=== PATIENT | female | born 1970 | race Caucasian/White ===

== ENCOUNTER 2017-06-15 14:12 | Observation (INO) ==
[2017-06-15 15:24] LABS: Basophils # 0.1 K/mcL (0.0-0.2); Basophils % 0.6 %; Hematocrit 38.2 % (35.3-44.9); Hemoglobin 12.4 g/dL (11.5-15.4); Immature Granulocytes % 0.6 % (0-4); Lymphocytes # 2.2 K/mcL (0.6-4.6); Lymphocytes % 18.5 %; Mean Corpuscular HGB Conc 32.5 g/dL (31.6-35.5); Mean Corpuscular Hemoglobin 27.6 pg (28.0-33.3); Mean Corpuscular Volume 85.1 fL (83.0-100.0); Mean Platelet Volume 9.5 fL (9.4-12.4); Monocytes # 0.8 K/mcL (0.0-1.3); Monocytes % 6.8 %; Neutrophils # 8.9 K/mcL (1.6-8.9); Platelet Count 326 K/mcL (140-400); Red Blood Count 4.49 M/mcL (3.82-4.97); Red Cell Distribution Width 13.4 % (11.5-14.5); Segmented Neutrophils % 73.5 %
[2017-06-15 15:26] LABS: INR 1.1; Prothrombin Time 11.3 Seconds (9.4-12.1)
[2017-06-15 15:28] LABS: Activated Partial Thrombo Time 25.1 Seconds (26.0-36.0)
[2017-06-15 15:34] LABS: BUN/Creatinine Ratio 21 (6-26); Blood Urea Nitrogen 20 mg/dL (7-20); Calcium 9.1 mg/dL (8.6-10.8); Carbon Dioxide 23 mEq/L (19-29); Chloride 104 mEq/L (98-109); Glucose 212 mg/dL (70-99); Osmolality,Calculated 293 (280-300); Potassium 4.7 mEq/L (3.5-4.5); Sodium 137 mEq/L (136-145); eGFR For African Americans > 60 (> 60); eGFR For Non-African Americans > 60 (> 60)
--- NOTE | 2017-06-15 15:55 | Emergency Department Note ---
Disposition Clinical Impression: Chest pain Qualifiers: Chest pain type: precordial pain Qualified Code(s): R07.2 - Precordial pain Knee pain, left Qualifiers: Chronicity: acute Qualified Code(s): M25.562 - Pain in left knee Excoriation of abdomen Qualifiers: Encounter type: initial encounter Qualified Code(s): S30.811A - Abrasion of abdominal wall, initial encounter Disposition: Admitted As Inpatient Condition: Fair Time of Disposition: 16:54 Chest Pain HPI - General Chief Complaint: ED Chest Pain Stated Complaint: Chest heaviness Time Seen by Provider: 06/15/17 15:09 Source: patient Mode of arrival: ambulatory Limitations: no limitations Vital Signs Reviewed: Yes Nursing Notes Reviewed: Yes - History of Present Illness HPI Narrative: 46-year-old female presents the ED for retrosternal chest pressure onset 0900 this AM at rest. Currently nonradiating, but has some associated shortness of air, diaphoresis, and nausea. Patient has had a recent cardiac stress test demonstrating reversible ischemia. Currently pending outpatient cardiac catheterization with Dr. Morales. Patient denies any history of PE/DVT, recent surgeries/mobilization, hemoptysis, or known active malignancy. Patient also complains of left knee pain that is apparently atraumatic, began several days ago, and is without any overt signs of inflammation including redness or swelling. Patient is able to ambulate on the left leg. Patient also complains of pruritic rash to her left lateral/anterior abdominal wall that has become excoriated due to itching. No known history of shingles, no known insect bites or other inoculum to the area. Severity scale (1-10): 9 - Related Data Home Medications Medication Instructions Recorded Confirmed Albuterol Sulfate [Ventolin Hfa] 2 puff IH Q4H PRN 06/15/17 06/15/17 Amitriptyline [Elavil] 25 mg PO HS 06/15/17 06/15/17 Aspirin Enteric Coated [Aspirin EC] 81 mg PO DAILY 06/15/17 06/15/17 Beclomethasone Diprop 40mcg [Qvar 1 puff IH BID 06/15/17 06/15/17 40 mcg] Dicyclomine [Bentyl] 20 mg PO TID PRN 06/15/17 06/15/17 Duloxetine HCl [Cymbalta] 60 mg PO DAILY 06/15/17 06/15/17 Exenatide [Byetta] 10 mcg SQ BID 06/15/17 06/15/17 Fluticasone Propionate Nasal 50 mcg NS DAILY 06/15/17 06/15/17 [Flonase] Gabapentin [Neurontin] 900 mg PO HS 06/15/17 06/15/17 HydrOXYzine Pamoate [Vistaril] 50 mg PO QAM 06/15/17 06/15/17 HydrOXYzine Pamoate [Vistaril] 100 mg PO HS 06/15/17 06/15/17 Insulin Glargine,Hum.rec.anlog 32 unit SQ HS 06/15/17 06/15/17 [Lantus Solostar] Insulin LISPRO [HumaLOG] 0 unit SQ TIDWM 06/15/17 06/15/17 Lisinopril [Zestril] 10 mg PO DAILY 06/15/17 06/15/17 Lovastatin 10 mg PO QPM 06/15/17 06/15/17 Metformin HCl [Glucophage Xr] 500 mg PO QPM 06/15/17 06/15/17 Naproxen [Naprosyn] 500 mg PO BID PRN 06/15/17 06/15/17 Omeprazole [PriLOSEC] 20 mg PO BIDAC 06/15/17 06/15/17 Propranolol HCl [Innopran Xl] 80 mg PO BID 06/15/17 06/15/17 SUMAtriptan Succinate [Imitrex] 100 mg PO Q2H PRN MDD 200 mg 06/15/17 06/15/17 SitaGLIPtin [Januvia] 100 mg PO DAILY 06/15/17 06/15/17 Trazodone HCl 100 mg PO HS PRN 06/15/17 06/15/17 clonazePAM [Klonopin] 0.5 mg PO BID PRN 06/15/17 06/15/17 glyBURIDE [GlyBURIDE] 10 mg PO BIDWM 06/15/17 06/15/17 Allergies Allergy/AdvReac Type Severity Reaction Status Date / Time No Known Allergies Allergy Verified 06/09/15 18:36 Review of Systems: Denies fevers, chills, sweats, palpitations, abdominal pain, vomiting, dysuria, blood and urine. 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 Absent: wheezes, stridor, accessory muscle use, prolonged expiratory phase - Cardiovascular Cardiovascular exam: Present: regular rate, normal rhythm, normal heart sounds. Absent: tachycardia, systolic murmur, diastolic murmur, +S3, +S4 - Abdominal Exam Abdominal exam: Present: soft, Non-Tender, other (Small region excoriated lesions to the left anterior abdominal wall not strictly following Dermatol pattern) - Extremities Exam Extremities exam: Absent: pedal edema - Expanded Lower Extremity Exam Knee exam: Present: normal inspection, full ROM, tenderness. Absent: swelling, abrasion, ecchymosis, deformity, crepitus, erythema, effusion Neurovascular/Tendon exam: Present: normal capillary refill. Absent: pulse deficit - Neurological Exam Neurological exam: Present: alert, oriented X3 - Skin Skin exam: Present: warm, normal color, diaphoresis (Mild). Absent: cyanosis, pallor, mottled Course - Consultations Consultation #1: Paged cardiology at request of hospitalist; spoke with registration scheduling specialist cardiology who requests NPO after midnight for AM cardiac catheterization. Time: 16:53 Vital Signs Temperature 98.3 F 06/15/17 14:20 Pulse Rate 82 06/15/17 14:20 Respiratory Rate 16 06/15/17 14:20 Blood Pressure 122/76 06/15/17 14:20 O2 Sat by Pulse Oximetry 95 06/15/17 14:20 Temperature 97.9 F 06/15/17 19:13 Pulse Rate 77 06/15/17 19:13 Respiratory Rate 16 06/15/17 20:06 Blood Pressure 110/71 06/15/17 19:13 O2 Sat by Pulse Oximetry 96 06/15/17 20:06 Oxygen Delivery Oxygen Delivery Room Air Chest Pain - [facility] Narrative Medical decision making narrative: Patient with known ischemic cardiac vasculature presents with approximately 7 hour history of acute onset of retrosternal chest pressure. Patient took 81mg ASA prior to arrival. HEART score = 5. Multiple EKGs negative. Initial troponin negative. Due to high risk, feel she should be admitted for further observation, monitoring, and ACS rule out. Hospitalist returned page at [phone] who accepts patient for ACS rule out; requests cardiology be paged and notified for consideration of inpatient cardiac catheterization. Spoke with cardiology who plans to do cath in AM and requests NPO at midnight. - Lab Data Lab results reviewed: Yes I reviewed the patient's lab results. Result diagrams: 06/15/17 15:14 06/15/17 15:14 Lab Results 06/15/17 06/15/17 06/15/17 Range/Units 15:14 15:14 15:14 WBC 12.1 H (4.3-11.1) K/mcL RBC 4.49 (3.82-4.97) M/mcL Hgb 12.4 (11.5-15.4) g/dL Hct 38.2 (35.3-44.9) % MCV 85.1 (83.0-100.0) fL MCH 27.6 L (28.0-33.3) pg MCHC 32.5 (31.6-35.5) g/dL RDW 13.4 (11.5-14.5) % Plt Count 326 (140-400) K/mcL MPV 9.5 (9.4-12.4) fL Immature Gran % 0.6 (0-4) % Seg Neutrophils % 73.5 % Lymphocytes % 18.5 % Monocytes % 6.8 % Eosinophils % 0.0 % Basophils % 0.6 % Neutrophils # 8.9 (1.6-8.9) K/mcL Lymphocytes # 2.2 (0.6-4.6) K/mcL Monocytes # 0.8 (0.0-1.3) K/mcL Eosinophils # 0.0 (0.0-0.6) K/mcL Basophils # 0.1 (0.0-0.2) K/mcL PT 11.3 (9.4-12.1) Seconds INR 1.1 APTT 25.1 L (26.0-36.0) Seconds Sodium (136-145) mEq/L Potassium (3.5-4.5) mEq/L Chloride (98-109) mEq/L Carbon Dioxide (19-29) mEq/L BUN (7-20) mg/dL Creatinine (0.57-1.11) mg/dL Est GFR ( Amer) (> 60) Est GFR (Non-Af Amer) (> 60) BUN/Creatinine Ratio (6-26) Glucose (70-99) mg/dL Calculated Osmolality (280-300) Calcium (8.6-10.8) mg/dL Troponin I (0-0.03) ng/mL B-Natriuretic Peptide < 10 (0-100) pg/mL 06/15/17 06/15/17 Range/Units 15:14 15:14 WBC (4.3-11.1) K/mcL RBC (3.82-4.97) M/mcL Hgb (11.5-15.4) g/dL Hct (35.3-44.9) % MCV (83.0-100.0) fL MCH (28.0-33.3) pg MCHC (31.6-35.5) g/dL RDW (11.5-14.5) % Plt Count (140-400) K/mcL MPV (9.4-12.4) fL Immature Gran % (0-4) % Seg Neutrophils % % Lymphocytes % % Monocytes % % Eosinophils % % Basophils % % Neutrophils # (1.6-8.9) K/mcL Lymphocytes # (0.6-4.6) K/mcL Monocytes # (0.0-1.3) K/mcL Eosinophils # (0.0-0.6) K/mcL Basophils # (0.0-0.2) K/mcL PT (9.4-12.1) Seconds INR APTT (26.0-36.0) Seconds Sodium 137 (136-145) mEq/L Potassium 4.7 H (3.5-4.5) mEq/L Chloride 104 (98-109) mEq/L Carbon Dioxide 23 (19-29) mEq/L BUN 20 (7-20) mg/dL Creatinine 0.97 (0.57-1.11) mg/dL Est GFR ( Amer) > 60 (> 60) Est GFR (Non-Af Amer) > 60 (> 60) BUN/Creatinine Ratio 21 (6-26) Glucose 212 H (70-99) mg/dL Calculated Osmolality 293 (280-300) Calcium 9.1 (8.6-10.8) mg/dL Troponin I 0.01 (0-0.03) ng/mL B-Natriuretic Peptide (0-100) pg/mL Laboratory Last Values WBC 12.1 K/mcL (4.3-11.1) H 06/15/17 15:14 RBC 4.49 M/mcL (3.82-4.97) 06/15/17 15:14 Hgb 12.4 g/dL (11.5-15.4) 06/15/17 15:14 Hct 38.2 % (35.3-44.9) 06/15/17 15:14 MCV 85.1 fL (83.0-100.0) 06/15/17 15:14 MCH 27.6 pg (28.0-33.3) L 06/15/17 15:14 MCHC 32.5 g/dL (31.6-35.5) 06/15/17 15:14 RDW 13.4 % (11.5-14.5) 06/15/17 15:14 Plt Count 326 K/mcL (140-400) 06/15/17 15:14 MPV 9.5 fL (9.4-12.4) 06/15/17 15:14 Immature Gran % 0.6 % (0-4) 06/15/17 15:14 Seg Neutrophils % 73.5 % 06/15/17 15:14 Lymphocytes % 18.5 % 06/15/17 15:14 Monocytes % 6.8 % 06/15/17 15:14 Eosinophils % 0.0 % 06/15/17 15:14 Basophils % 0.6 % 06/15/17 15:14 Neutrophils # 8.9 K/mcL (1.6-8.9) 06/15/17 15:14 Lymphocytes # 2.2 K/mcL (0.6-4.6) 06/15/17 15:14 Monocytes # 0.8 K/mcL (0.0-1.3) 06/15/17 15:14 Eosinophils # 0.0 K/mcL (0.0-0.6) 06/15/17 15:14 Basophils # 0.1 K/mcL (0.0-0.2) 06/15/17 15:14 PT 11.3 Seconds (9.4-12.1) 06/15/17 15:14 INR 1.1 06/15/17 15:14 APTT 25.1 Seconds (26.0-36.0) L 06/15/17 15:14 Sodium 137 mEq/L (136-145) 06/15/17 15:14 Potassium 4.7 mEq/L (3.5-4.5) H 06/15/17 15:14 Chloride 104 mEq/L (98-109) 06/15/17 15:14 Carbon Dioxide 23 mEq/L (19-29) 06/15/17 15:14 BUN 20 mg/dL (7-20) 06/15/17 15:14 Creatinine 0.97 mg/dL (0.57-1.11) 06/15/17 15:14 Est GFR ( Amer) > 60 (> 60) 06/15/17 15:14 Est GFR (Non-Af Amer) > 60 (> 60) 06/15/17 15:14 BUN/Creatinine Ratio 21 (6-26) 06/15/17 15:14 Glucose 212 mg/dL (70-99) H 06/15/17 15:14 Calculated Osmolality 293 (280-300) 06/15/17 15:14 Calcium 9.1 mg/dL (8.6-10.8) 06/15/17 15:14 Troponin I 0.01 ng/mL (0-0.03) 06/15/17 15:14 B-Natriuretic Peptide < 10 pg/mL (0-100) 06/15/17 15:14 - Radiology Data Radiology results reviewed: Yes I reviewed the patient's radiology results. Chest X-Ray 06/15/17 14:24 IMPRESSION: Normal appearing chest. D/ / Albino Tracey MD / Albino Tracey MD Interpreting Provider: Albino Tracey MD Heart Score - Score History: Highly Suspicious EKG: Normal Age: 45-65 Risk Factors: Equal/Greater than 3 risk factor or history of atherosclerotic disease Troponin: Less than normal limit HEART Score Total: 5
--- NOTE | 2017-06-15 15:58 | Emergency Department Note ---
START Narrative - START START: I examined this patient and my medical decision-making was reviewed with the NUCLEAR MEDICINE TECHNICIAN/PA/Advanced Practice Nurse/Resident Physician. I agree with the documented findings, disposition and treatment plan as described except to the extent set forth below. The patient does have chest pain started this morning and she did have a stress test just over a week ago which showed reversible deficit. Initial EKG at 216 shows normal sinus rhythm with a rate of 84 without acute ischemic changes and because of continued ongoing pain the patient had a second EKG at 350 which shows a normal sinus rhythm with a rate of 76 and again without acute ischemic change so the patient will be admitted based on her previous stress test with the reversible deficit and the onset of more significant pain. She denies any pleuritic pain, there is no radiation to the back, I do not suspect pulmonary embolism or aortic dissection. The hospitalist will be contacted about admission [phone]
[2017-06-15] MEDS ORDERED: *HR* Morphine 2 MG/ML SYRINGE IVP PRN (17:06)
[2017-06-15] MEDS ORDERED: Nitroglycerin 0.4 MG TAB.SUBL SL PRN (17:06)
[2017-06-15] MEDS ORDERED: Dextrose Gel 15 GM PO PRN ×2 (17:09)
[2017-06-15] MEDS ORDERED: *HR* Dextrose 50 % in Water (Syg) 50 ML SYRINGE IVP PRN (17:09)
[2017-06-15] MEDS ORDERED: SUMAtriptan succinate 50 MG TABLET PO PRN (17:09)
[2017-06-15] MEDS ORDERED: clonazePAM 0.5 MG TABLET PO PRN (17:09)
[2017-06-15] MEDS ORDERED: D5% in Water 1,000 ML IVC PRN (17:09)
--- NOTE | 2017-06-15 17:17 | Internal Med History&Physical ---
Date of Encounter: 06/15/17 Time of Encounter: 17:00 Assessment and Plan (1) Chest pain Current visit: Yes Status: Acute Precordial chest pressure. Concerning for angina and dizziness. Place on telemetry. Trend troponins. Cardiology has been consulted. Given patient's abnormal cardiac stress test, plan for cardiac catheterization tomorrow. Will keep nothing by mouth after midnight. Check A1c level and lipid profile. Nitroglycerin and morphine as needed for pain control. Does have high risk factors including history of diabetes mellitus type 2, hypertension, obesity and positive family history. Qualifiers: Chest pain type: precordial pain Qualified Code(s): R07.2 - Precordial pain (2) Abnormal nuclear stress test Current visit: Yes Status: Acute (3) Diabetes mellitus Current visit: Yes Status: Chronic Blood glucose 212. Monitor blood sugars. Sliding scale insulin and Levemir. Diabetic diet. We will check A1c. 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 Continue lisinopril Internal Medicine - H&P: HPI Chief complaint: Chest pressure Admitted From: Emergency Dept Plans for Post Hospital Care: Home History of present illness: Ms. Agee is a 46 year old female patient with a history of essential hypertension, diabetes mellitus type 2 who presented to the ER with complaints of chest pain. This began at around 10 AM this morning. Pain is described as a pressure-like sensation in the central chest region. It is nonradiating. No relation to activity. Earlier this month she had pain in her left jaw and she was referred for a stress test as outpatient. The stress test was positive for medium-sized mild to moderate intensity reversible perfusion defect involving the basal-apical anterior wall and apex. Patient was scheduled for a cardiac catheterization as outpatient later this month. She denies any shortness of breath. No palpitations. No fever or chills. No dizziness or lightheadedness. Past Med Surg Social Fam HX - Past Medical History Attestation: Yes The following information was validated with the patient. Source: patient Medical history: asthma, coronary artery disease, diabetes, hyperlipidemia, hypertension, other (Ongoing episodic angina currently in course of diagnostic evaluation; pending cardiac cath) Psychiatric history: anxiety, depression - Past Surgical History Surgical History: non-contributory, (x2), sinus surgery (x2), other ( tubal ligation) - Social History Smoking Status: Never smoker Smokeless Tobacco Status: No Alcohol use: none Drug use: none - Additional Family History Additional family history: Positive family history for heart disease in mother and father Internal Medicine - H&P: Meds Albuterol Sulfate [Ventolin Hfa] 2 puff IH Q4H PRN 06/15/17 [History] Amitriptyline [Elavil] 25 mg PO HS 06/15/17 [History] Aspirin Enteric Coated [Aspirin EC] 81 mg PO DAILY 06/15/17 [History] Beclomethasone Diprop 40mcg [Qvar 40 mcg] 1 puff IH BID 06/15/17 [History] Dicyclomine [Bentyl] 20 mg PO TID PRN 06/15/17 [History] Duloxetine HCl [Cymbalta] 60 mg PO DAILY 06/15/17 [History] Exenatide [Byetta] 10 mcg SQ BID 06/15/17 [History] Fluticasone Propionate Nasal [Flonase] 50 mcg NS DAILY 06/15/17 [History] Gabapentin [Neurontin] 900 mg PO HS 06/15/17 [History] HydrOXYzine Pamoate [Vistaril] 50 mg PO QAM 06/15/17 [History] HydrOXYzine Pamoate [Vistaril] 100 mg PO HS 06/15/17 [History] Insulin Glargine,Hum.rec.anlog [Lantus Solostar] 32 unit SQ HS 06/15/17 [History ] Insulin LISPRO [HumaLOG] 0 unit SQ TIDWM 06/15/17 [History] Lisinopril [Zestril] 10 mg PO DAILY 06/15/17 [History] Lovastatin 10 mg PO QPM 06/15/17 [History] Metformin HCl [Glucophage Xr] 500 mg PO QPM 06/15/17 [History] Naproxen [Naprosyn] 500 mg PO BID PRN 06/15/17 [History] Omeprazole [PriLOSEC] 20 mg PO BIDAC 06/15/17 [History] Propranolol HCl [Innopran Xl] 80 mg PO BID 06/15/17 [History] SUMAtriptan Succinate [Imitrex] 100 mg PO Q2H PRN MDD 200 mg 06/15/17 [History] SitaGLIPtin [Januvia] 100 mg PO DAILY 06/15/17 [History] Trazodone HCl 100 mg PO HS PRN 06/15/17 [History] clonazePAM [Klonopin] 0.5 mg PO BID PRN 06/15/17 [History] glyBURIDE [GlyBURIDE] 10 mg PO BIDWM 06/15/17 [History] 3 Allergy/AdvReac Type Severity Reaction Status Date / Time No Known Allergies Allergy Verified 06/09/15 18:36 All Systems PM: A 10-system review of systems was performed and is negative for pertinent findings except as documented above in the HPI. - Constitutional Constitutional: no chills, no fever(s), no night sweats - EENT Eyes: no change in vision, no discharge, no pain, no photophobia Ears: no ear discharge, no ear pain, no tinnitus Nose, mouth and throat: no dysphagia, no nasal discharge, no neck pain, no sore throat - Cardiovascular Cardiovascular ROS IM: chest pain, no diaphoresis, no dyspnea, no lightheadedness, no palpitations, no syncope - Respiratory Respiratory: no cough, no dyspnea, no wheezing, no excessive phlegm production - Gastrointestinal Gastrointestinal: no abdominal pain, no diarrhea, no hematemesis, no hematochezia, no melena, no nausea, no vomiting - Genitourinary Genitourinary: no change in urinary stream, no dysuria, no flank pain, no hematuria - Musculoskeletal Musculoskeletal ROS IM: arthralgias, no numbness, no tingling - Integumentary Integumentary IM: no rash, no unusual bruising - Neurological Neurological ROS: no confusion, no convulsions, no focal weakness, no numbness, no tingling, no tremor(s) - Hematologic/Lymphatic Hematologic/Lymphatic: no easy bruising - Constitutional Vitals: Temp Pulse Resp BP Pulse Ox 98.3 F 84 18 117/76 96 06/15/17 14:20 06/15/17 15:48 06/15/17 17:03 06/15/17 17:03 06/15/17 15:48 General appearance: Present: cooperative, A&O X 3, morbidly obese, answers questions appropriately - Neck Neck exam general surgery: Present: supple, trachea midline. Absent: lymphadenopathy - Respiratory Respiratory exam: Present: CTAB. Absent: accessory muscle use, rales, rhonchi, wheezes - Cardiovascular Cardiovascular exam: Present: RRR, +S1, +S2. Absent: diastolic murmur, gallop, rubs, systolic murmur - GI/Abdominal GI/Abdominal exam: Present: normal bowel sounds, soft, no peritoneal signs. Absent: distended, tenderness - Extremities Exam Extremities exam: Present: warm, radial pulses palpable and symmetrical. Absent : calf tenderness, cyanotic, pedal edema - Neurological Exam Neurological exam: Present: CN II-XII intact, oriented X3, no focal deficits. Absent: facial droop, speech deficit - Skin Skin exam: Present: dry, intact Internal Med - H&P Results - Labs CBC & Chem 7: 06/15/17 15:14 06/15/17 15:14 - EKG Data -: EKG Interpreted by Myself EKG shows normal: sinus rhythm Rate: normal - EKG Data Interpretation IM: normal EKG - Impressions Impressions Chest X-Ray 06/15/17 14:24 IMPRESSION: Normal appearing chest. D/ / Albino Tracey MD / Albino Tracey MD Interpreting Provider: Albino Tracey MD
[2017-06-15] MEDS: *HR* Heparin 5,000 UNIT/ML VIAL SQ SCH (19:05)
[2017-06-15] MEDS: Beclomethasone 40mcg MDI IH SCH (20:07)
[2017-06-15] MEDS: Propranolol LA (24 HR) 80 MG CAP.SA.24H PO SCH (20:28)
[2017-06-15] MEDS ORDERED: traZODone 50 MG TABLET PO PRN (21:00)
[2017-06-15] MEDS ORDERED: Gabapentin 300 MG CAPSULE PO SCH (21:00)
[2017-06-15] MEDS ORDERED: Insulin LISPRO 300 UNITS/3 ML VIAL SQ SCH (21:00)
[2017-06-15] MEDS ORDERED: hydrOXYzine pamoate 25 MG CAPSULE PO SCH (21:00)
[2017-06-15] MEDS ORDERED: Ondansetron 4 MG/2 ML VIAL IVP ONE (22:29)
[2017-06-16 03:09] LABS: Basophils # 0.1 K/mcL (0.0-0.2); Basophils % 0.5 %; Hematocrit 33.2 % (35.3-44.9); Immature Granulocytes % 0.4 % (0-4); Lymphocytes # 2.2 K/mcL (0.6-4.6); Mean Corpuscular HGB Conc 32.5 g/dL (31.6-35.5); Mean Platelet Volume 9.5 fL (9.4-12.4); Monocytes # 0.6 K/mcL (0.0-1.3); Monocytes % 6.4 %; Neutrophils # 6.9 K/mcL (1.6-8.9); Platelet Count 245 K/mcL (140-400); Red Blood Count 3.86 M/mcL (3.82-4.97); Red Cell Distribution Width 13.5 % (11.5-14.5); Segmented Neutrophils % 70.7 %
[2017-06-16 03:18] LABS: Hemoglobin 10.8 g/dL (11.5-15.4)
[2017-06-16 03:22] LABS: Hemoglobin A1C 6.6 %
[2017-06-16 03:29] LABS: BUN/Creatinine Ratio 24 (6-26); Blood Urea Nitrogen 20 mg/dL (7-20); Calcium 8.6 mg/dL (8.6-10.8); Carbon Dioxide 26 mEq/L (19-29); Chloride 103 mEq/L (98-109); Glucose 219 mg/dL (70-99); Osmolality,Calculated 295 (280-300); Potassium 4.5 mEq/L (3.5-4.5); Sodium 138 mEq/L (136-145); eGFR For African Americans > 60 (> 60); eGFR For Non-African Americans > 60 (> 60)
[2017-06-16] MEDS: *HR* Heparin 5,000 UNIT/ML VIAL SQ SCH (08:20)
[2017-06-16] MEDS: Propranolol LA (24 HR) 80 MG CAP.SA.24H PO SCH (08:21)
[2017-06-16] MEDS: Insulin LISPRO 300 UNITS/3 ML VIAL SQ SCH ×2 (08:23→11:29)
[2017-06-16] MEDS ORDERED: Fluticasone Propionate Nasal 50 MCG/SPRAY BOTTLE NS SCH (09:00)
[2017-06-16] MEDS ORDERED: hydrOXYzine pamoate 25 MG CAPSULE PO SCH (09:00)
[2017-06-16] MEDS ORDERED: Aspirin Enteric Coated 81 MG Tablet PO SCH (09:00)
[2017-06-16] MEDS: Beclomethasone 40mcg MDI IH SCH (10:03)
--- NOTE | 2017-06-16 10:15 | Cardiology Consult Note ---
Date of Encounter: 06/16/17 Time of Encounter: 10:10 Assessment and Plan (1) Abnormal nuclear stress test Current Visit: Yes Status: Acute Stress test completed 05/29/17 The exercise capacity was fair. Patient had wheezing and shortness of breath with exercise. Exercise ECG is negative for ischemia. The left ventricle is borderline dilated. Gated LVEF = 57%. There is a medium sized, mild-moderate intensity, reversible perfusion defect involving the basal-apical anterior wall and apex. Findings are consistent with reversible ischemia involving the basal-apical anterior wall and apex. Presents with recurrent chest pain. Troponin negative x3. EKG with no acute ST changes. Multiple cardiac risk factors include DM type II, HTN, HLD, obesity, and significant family history (mother PR in her 40's). [facility] R/B/A reviewed and she agrees to proceed. Continue risk factor modification. Continue asa and statin therapy. (2) Chest pain Current Visit: Yes Status: Acute Qualifiers: Chest pain type: precordial pain Qualified Code(s): R07.2 - Precordial pain Discussion w patient/family: The assessment and plan as outlined above was discussed with the patient and/or family members who expressed understanding and agreement. All questions were answered. Thank you for involving us in the care of your patient. Please call with any questions. History of Present Illness Consult date: 06/16/17 Requesting physician: Mary Ceballos Consult reason: Chest pain Chief complaint: Chest pain History of present illness: Ms. Agee is a 46 year old female who presented with chest pain radiating to her back between her shoulder blades yesterday. States pain started while she was watching TV sitting on her couch. Denies alleviating factors. Admits to occasional palpitations and SOB associated with her chest pain. Pain was intermittent for 24 hours. She c/o jaw pain at rest two weeks ago that prompted her primary care doctor to order a stress test. Two day exercise stress test completed 05/29/17 showed reversible perfusion defect in the basal to apical anterior wall and apex concerning for ischemia. She was scheduled to see cardiology next week for further evaluation. She has a past medical history of HTN, HLD, DM type II, asthma, and obesity. She denies history of CAD. She did undergo LHC in 2009 that did not show any flow limiting lesions. Past Med Surg Social Fam HX - Past Medical History Medical history: asthma, diabetes, hyperlipidemia, hypertension, other (Ongoing episodic angina currently in course of diagnostic evaluation; pending cardiac cath) Psychiatric history: anxiety, depression - Past Surgical History Surgical History: non-contributory, (x2), sinus surgery (x2), other ( tubal ligation) - Social History Smoking Status: Never smoker Smokeless Tobacco Status: No Alcohol use: none Drug use: none Medications and Allergies Albuterol Sulfate [Ventolin Hfa] 2 puff IH Q4H PRN 06/15/17 [History] Amitriptyline [Elavil] 25 mg PO HS 06/15/17 [History] Aspirin Enteric Coated [Aspirin EC] 81 mg PO DAILY 06/15/17 [History] Beclomethasone Diprop 40mcg [Qvar 40 mcg] 1 puff IH BID 06/15/17 [History] Dicyclomine [Bentyl] 20 mg PO TID PRN 06/15/17 [History] Duloxetine HCl [Cymbalta] 60 mg PO DAILY 06/15/17 [History] Exenatide [Byetta] 10 mcg SQ BID 06/15/17 [History] Fluticasone Propionate Nasal [Flonase] 50 mcg NS DAILY 06/15/17 [History] Gabapentin [Neurontin] 900 mg PO HS 06/15/17 [History] HydrOXYzine Pamoate [Vistaril] 50 mg PO QAM 06/15/17 [History] HydrOXYzine Pamoate [Vistaril] 100 mg PO HS 06/15/17 [History] Insulin Glargine,Hum.rec.anlog [Lantus Solostar] 32 unit SQ HS 06/15/17 [History ] Insulin LISPRO [HumaLOG] 0 unit SQ TIDWM 06/15/17 [History] Lisinopril [Zestril] 10 mg PO DAILY 06/15/17 [History] Lovastatin 10 mg PO QPM 06/15/17 [History] Metformin HCl [Glucophage Xr] 500 mg PO QPM 06/15/17 [History] Naproxen [Naprosyn] 500 mg PO BID PRN 06/15/17 [History] Omeprazole [PriLOSEC] 20 mg PO BIDAC 06/15/17 [History] Propranolol HCl [Innopran Xl] 80 mg PO BID 06/15/17 [History] SUMAtriptan Succinate [Imitrex] 100 mg PO Q2H PRN MDD 200 mg 06/15/17 [History] SitaGLIPtin [Januvia] 100 mg PO DAILY 06/15/17 [History] Trazodone HCl 100 mg PO HS PRN 06/15/17 [History] clonazePAM [Klonopin] 0.5 mg PO BID PRN 06/15/17 [History] glyBURIDE [GlyBURIDE] 10 mg PO BIDWM 06/15/17 [History] 3 Allergy/AdvReac Type Severity Reaction Status Date / Time No Known Allergies Allergy Verified 06/09/15 18:36 All Systems Review: A 10-system review of systems was performed and is negative for pertinent findings except as documented above in the HPI. Physical Examination Vital Signs, Last 4 Hours Temp Pulse Resp BP Pulse Ox 06/16/17 10:03 18 98 06/16/17 06:50 98.1 F 66 18 108/71 98 General: Conversant, No Apparent Distress, Other (Morbid obesity) HEENT: Atraumatic, Normocephaly, Mucus Membranes Moist Neck: No JVD, Normal carotid pulses Cardiac: Reg Rate and Rhythm, Normal S1 and S2, No Murmur Lungs: Normal Breath Sounds, No Wheeze, Rales, Rhonchi Neuro: Alert and responsive, No focal deficits noted Abdomen: Soft, Non-Tender Skin: No rashes noted on visualized skin Musculoskeletal: No Chest Wall Tenderness Extremities: No Clubbing, No Cyanosis, No Edema, Normal Pulses Results 06/16/17 02:53 06/16/17 02:53 Lab Results 06/15/17 06/16/17 06/16/17 20:33 02:53 02:53 WBC 9.8 Hgb 10.8 L D Hct 33.2 L Plt Count 245 Sodium 138 Potassium 4.5 Chloride 103 Carbon Dioxide 26 BUN 20 Creatinine 0.85 Glucose 219 H Calcium 8.6 Troponin I 0.00 06/16/17 02:53 WBC Hgb Hct Plt Count Sodium Potassium Chloride Carbon Dioxide BUN Creatinine Glucose Calcium Troponin I 0.00 - Imaging and Cardiology Stress Test: report reviewed - EKG Interpretation EKG results cardiology: personally reviewed Consult Discharge Plan - Plan Referrals: Chava Saleh MD [Primary Care Provider] - (web request sent on 06/16/17 )
[2017-06-16] MEDS ORDERED: Insulin DETEMIR 100 UNIT/ML X5UNITS SQ SCH (11:15)
[2017-06-16] MEDS ORDERED: Heparin 1,000 UNITS/500 mL NS 500 ML ONE (11:42)
[2017-06-16] MEDS ORDERED: 0.9 % Sodium Chloride 1,000 ML ONE ×2 (11:42→12:29)
[2017-06-16] MEDS ORDERED: *HR* Heparin 10,000 UNIT/10 ML VIAL ONE (11:42)
[2017-06-16] MEDS ORDERED: *HR* FentaNYL (PF) 100 MCG/2 ML VIAL ONE (12:29)
[2017-06-16] MEDS ORDERED: *HR* Midazolam HCl 2 MG/2 ML VIAL ONE ×2 (12:29→12:54)
--- NOTE | 2017-06-16 12:39 | Pre-Sedation Evaluation ---
Pre-sedation evaluation - Pre-sedation checklist Date of procedure: 06/16/17 Procedure: [facility] Recent Vitals: Last Vital Signs Temp 98.1 F 06/16/17 11:19 Pulse 70 06/16/17 11:19 Resp 18 06/16/17 11:19 BP 99/66 06/16/17 11:19 Pulse Ox 96 06/16/17 11:19 H&P (including ROS) documented in medical record: Yes Previous reaction to sedatives/anesthetics: No Dietary Status: NPO after Midnight Airway Assessment: Patient can open mouth completely, TMJ function normal Dentition: No loose teeth or bridges Possible difficult airway: No ASA Classification *see protocol: CLASS III-Severe systemic disease Plan of Care: Pt appropriate candidate for procedure/moderate/conscious sedation , Risks/benefits of procedure/sedation discussed w/ patient/family, If not NPO; Risk of intake outweiged by necessity to perform procedure
[2017-06-16] MEDS ORDERED: Nitroglycerin 1,000 MCG/10 ML VIAL IV ONE (12:42)
--- NOTE | 2017-06-16 13:16 | Event Note ---
Date of Encounter: 06/16/17 Time of Encounter: 13:13 - Cardiology Event Note LHC showed no significant CAD. ECHO completed showed normal EF. No significant valvular disease. Continue aggressive risk factor modification. Consider work-up of non-cardiac cause of chest pain. Cardiology signing off. Please call with questions.
--- NOTE | 2017-06-16 13:25 | Invasive Diagnostic Lab Proc ---
Name: Rachel Agee Date of Study: 06/16/2017 Date: 1970 Ht: 65.0in Medical Record#: [id number] Age: 46 Wt: 309.53lb Gender: Female BSA: 2.38 Order #: [id number] BMI: 51.57 Physicians Procedure Physician: Joshua Fraire DO Referring MD: Referring MD: Staff Name Position Time In Steph Krishnan RN Monitor 12:39 PM Aure Ravi RN Waste Management Engineer 12:39 PM Mary Ann RN Waste Management Engineer 12:39 PM [facility], Catherine RT (R) Scrub 12:39 PM Indications Indication Abnormal Test - Stress Procedures Performed Procedure L HRT ARTERY/VENTRICLE ANGIO Pre-Procedure Checklist Informed consent is complete signed and on chart. H&P is on chart. ID band is on and ID verified with patient. Patient NPO for procedure The procedure was described for the patient and questions were answered. Blood Pressure: 108/71 ECG is on chart. Rhythm: NSR Plan of Care Patient will tolerate the procedure without complications. Adequate level of comfort will be maintained. Hemodynamics will remain stable Patient will recover from procedure without complications. Respiratory function will be maintained. Cardiac rhythm will remain stable. Patient temperature will be maintained. Patient and/or family have verbalized understanding of the procedure. Patient Education Chief Complaint/Reason for Test: Cardiac Cath Developmental Category: Adult (18-64 years) Developmentally Appropriate for Age: Yes Learning Barriers: None Education Needs: Procedure Education Method: Verbal Information Taught: Cardiac Cath Educational Evaluation: Able to repeat information Intravenous Access Time IV Size Location DC'd Fluid/Drip Rate Units RN 12:07 PM 20g 1 /" Patent On Arrival Rt Wrist 0.9NaCl 25 ml/hr Aure Ravi RN Allergies *HR* METFORMIN LMP-12/10 LATEX, LAB RESULTS <0.10 (NON SIGNIFICANT) Metformin Vital Signs Time BP (mmHg) HR (bpm) O2 Sat. RR (bpm) LOC 12:08 PM 108 / 71 66 98 % 18 5 = Fully awake and oriented or at pre-proc level 12:40 PM / % 5 = Fully awake and oriented or at pre-proc level 12:41 PM / % 4 = Oriented but drowsy 12:56 PM 134 / 70 70 99 % 29 01:01 PM 128 / 63 70 100 % 36 01:06 PM 123 / 59 74 99 % 19 01:11 PM 125 / 73 74 97 % 24 12:36 PM 142 / 78 72 97 % 17 12:41 PM 136 / 78 75 97 % 19 12:46 PM 143 / 71 68 99 % 23 12:51 PM 130 / 72 72 98 % 16 Procedural Medications Time Medication Dose Units Method Given By 12:40 PM Oxygen 2 L/min nasal cannula Aure Ravi RN 12:40 PM Versed 2 mg Intravenous Aure Ravi RN 12:54 PM Versed 1 mg Intravenous Aure Ravi RN 12:54 PM Lidocaine 2% 10 ml Subcutaneous Joshua Fraire DO ASA Classification: CLASS III- Severe systemic disease (i.e. prior AMI, diabetes with vascular complications, morbid obesity) Kadi Score Preprocedure Postprocedure Activity 2- Moves 4 extremities sustained head lift Activity 2- Moves 4 extremities sustained head lift Circulation 2- SBP +/= 20 points of pre-anesthetic level Circulation 2- SBP +/= 20 points of pre-anesthetic level Consciousness 2- Awake and alert oriented x 3 Consciousness 2- Awake and alert oriented x 3 O2 Saturation 2- Able to maintain O2 satruation of 92% on room air O2 Saturation 2- Able to maintain O2 satruation of 92% on room air Respiratory 2- Able to deep breathe and cough well Respiratory 2- Able to deep breathe and cough well Total Score 10 Total Score 10 Contrast Agent: Isovue Diagnostic Contrast: 40 ml Total Contrast: 40 ml Fluoro Dose: 258 mGy Procedure Log Time Note Enter By 12:07 PM CathStat 12:35 PM Vitals capture started with the following parameters, Patient=Adult, Interval=5 min, Initial Ixhvofig=653 mmHg, Deflation Rate=5 mmHg, Cuff placed on Right Arm 12:36 PM Recorded ECG: HR=73 Condition=Condition 1 12:36 PM HR=72 bpm, QSDV=467/78 mmhg, SpO2=97.0 %, Resp=17 B/min, Comment=NSR 12:38 PM Pt arrived to [employer] 2 at 12:38 [facility] 12:38 PM Physician arrived 12:38 [facility] 12:38 PM Meet and greet completed [facility] 12:38 PM Sign in performed according to hospital policy. [facility] 12:38 PM Procedure start 12:38 [facility] 12:39 PM Parsley, Steph RN Position: Monitor Time in: 12:39 [facility] 12:39 PM Aure Ravi RN Position: Waste Management Engineer Time in: 12:39 [facility] 12:39 PM Mary Ann RN Position: Waste Management Engineer Time in: 12:39 [facility] 12:39 PM Sites, Catherine RT (R) Position: Scrub Time in: 12:39 [facility] 12:40 PM Patient charges- Angio tray pack, Navilyst 3mm J, Pulse Oximetry and ACIST tubing and transducer [facility] 12:40 PM Case Delayed No [facility] 12:40 PM Hair removed from procedure site in procedure lab using clippers. Bilateral groin prepped with Chloraprep by Mary Ann RN, safety strap applied then patient was draped. Skin intact. [facility] 12:40 PM Time: 12:40 Oxygen on at 2 L/min per nasal cannula by Aure Ravi RN [facility] 12:40 PM Time: 12:40 Versed 2 mg Intravenous Given by Aure Ravi RN [facility] 12:40 PM Time: 12:40 Patient comfortable and pain free: Yes [facility] 12:41 PM Time: 12:40LOC: 5 = Fully awake and oriented or at pre-proc level [facility] 12:41 PM HR=75 bpm, MOQF=214/78 mmhg, SpO2=97.0 %, Resp=19 B/min, Comment=NSR 12:41 PM Clinical Presentation: Unstable angina [facility] 12:44 PM ASA Class CLASS III- Severe systemic disease (i.e. prior AMI, diabetes with vascular complications, morbid obesity) [facility] 12:46 PM HR=68 bpm, PPST=003/71 mmhg, SpO2=99.0 %, Resp=23 B/min, Comment=NSR 12:51 PM HR=72 bpm, BARO=610/72 mmhg, SpO2=98.0 %, Resp=16 B/min, Comment=NSR 12:54 PM Time out performed according to hospital policy [facility] 12:54 PM Time: 12:54 Versed 1 mg Intravenous Given by Aure Ravi RN [facility] 12:56 PM Time: 12:41LOC: 4 = Oriented but drowsy [facility] 12:56 PM HR=70 bpm, PRVL=360/70 mmhg, SpO2=99.0 %, Resp=29 B/min, Comment=NSR 12:57 PM Time: 12:54 10 ml Lidocaine 2% to right groin Subcutaneous Given by Joshua Fraire DO [facility] 12:57 PM Time: 12:40 Patient comfortable and pain free: Yes [facility] 12:58 PM Micro-Introducer Kit utilized for sheath placement [facility] 12:58 PM Access obtained by percutaneous puncture. 6Fr 10cm Terumo Usk sheath placed in right Femoral artery. [id number] [facility] 01:00 PM 6Fr FR 4 catheter inserted over the wire [facility] 01:00 PM Catheter selectively placed in left [facility] 01:00 PM Recorded Pressure: LV, HR=68, Condition=Condition 1 (Left Ventricle) LV 105/7/12 01:00 PM 0.035 145cm Navilyst 3mmJ wire [id number] [facility] 01:01 PM Recorded Pressure: LV, Ao, HR=72, Condition=Condition 1 (Left Ventricle) LV 101/-1/13, (Aorta) Ao 104/61/80 01:01 PM Bolus angiogram of left Ventricle complete: ml/sec for a [facility] 01:01 PM RCA angiography performed in multiple views. [facility] 01:01 PM HR=70 bpm, SCOO=701/63 mmhg, UbB1=633.0 %, Resp=36 B/min, Comment=NSR 01:02 PM Catheter removed [facility] 01:02 PM 5Fr FL 4 catheter inserted over the wire [facility] 01:02 PM LCA angiography performed in multiple views. [facility] 01:02 PM Recorded Pressure: Ao, HR=71, Condition=Condition 1 (Aorta) Ao 99/60/77 01:03 PM Catheter removed [facility] 01:04 PM Bolus angiogram of right Femoral complete: hand injected [facility] 01:06 PM Coronary Dominance: right [facility] 01:06 PM HR=74 bpm, NVZK=884/59 mmhg, SpO2=99.0 %, Resp=19 B/min, Comment=NSR 01:09 PM Procedure completed at 13:09 [facility] 01:09 PM Sign out completed: Radiation Dose 258.07 mGy Fluoro Time: 1.3 Isovue 370 - 200ml contrast 40 ml given by Joshua Fraire DO. Complications: NoneCardiac Rehab Consult needed: NoConfirmed administered medications: Yes [email or web address] 01:09 PM Isovue 370 - 200ml,1 Bottle(s) used. lparsley 01:09 PM Arterial sheath pulled, Angio-seal closure device used and was Successful [id number] S/N. lparsley 01:10 PM Post ECG NSR lparsley 01:10 PM Post Blood Pressure 123/59 lparsley 01:10 PM 13:10 Post Pulses Bilateral DP & PT 2+ lparsley 01:10 PM Information taught Cardiac Cath and Angioseal lparsley 01:10 PM Education needs Procedure, Plan of Care, and Safe & Effective Use of Medications lparsley 01:10 PM Learning barriers :None lparsley 01:10 PM Education Methods Verbal lparsley 01:10 PM Education evaluation Able to repeat information lparsley 01:10 PM Site status No bleeding/hematoma - Rt Groin as reported by Sites, Catherine RT (R) at 13:10 lparsley 01:10 PM Opsite applied lparsley 01:11 PM HR=74 bpm, QHRR=846/73 mmhg, SpO2=97.0 %, Resp=24 B/min, Comment=NSR 01:14 PM Time: 12:57 Patient comfortable and pain free: Yes lparsley 01:14 PM Report given to Gracia BUITRAGO Pt taken to 2A Room #43. 13:10 lparsley 01:15 PM Plavix, Effient or Brilinta given No lparsley 01:15 PM Delay to floor No lparsley 01:15 PM Patient out of room: 13:15 lparsley 01:15 PM Family placed in consult room. lparsley 01:15 PM Complications: None lparsley 01:15 PM Fluoro Time: 1.3 lparsley 01:15 PM Isovue 370 - 200ml contrast 40 ml given by Joshua Fraire DO. lparsley 01:15 PM Radiation Dose 258.07 mGy [email or web address] Complications Complication None Hemodynamics Pressures Site Systolic/A Wave Diastolic/V Wave Mean LV 105 7 12 AO 99 60 77 LV 101 -1 13 AO 104 61 80 Post Procedure Information Blood Pressure: 123/59 mmHg Rhythm: NSR Post procedural instructions were given Closure Device Time Device Success/Fail 06/16/2017 1:15:00 PM Angio-Seal VIP Successful Site Checks Time Location Status Staff Sheath In? Note 01:10 PM Rt Groin No bleeding/hematoma Sites, Catherine RT (R) Pulses Time Site Pre-Procedure Post-Procedure Note 06/16/2017 12:38:00 PM Bilateral DP & PT 2+ 1:10:00 PM Bilateral DP & PT 2+ Updated by Steph Krishnan RN on 06/16/2017 1:18:06 PM electronically signed on 06/16/2017 1:19:35 PM with status of Final
--- NOTE | 2017-06-16 14:12 | Discharge Summary ---
Date of Encounter: 06/16/17 Time of Encounter: 14:09 - Discharge Diagnosis (1) Chest pain Priority: Primary Status: Acute Qualifiers: Chest pain type: precordial pain Qualified Code(s): R07.2 - Precordial pain (2) Abnormal nuclear stress test Priority: Secondary Status: Acute (3) Diabetes mellitus Priority: Secondary Status: Chronic Qualifiers: Diabetes mellitus type: type 2 Diabetes mellitus complication status: with hyperglycemia Diabetes mellitus termite helper insulin use: with longterm use Qualified Code(s): E11.65 - Type 2 diabetes mellitus with hyperglycemia; Z79.4 - exterminator helper (current) use of insulin; Z79.4 - custodial (current) use of insulin ; Z79.4 - custodial (current) use of insulin; Z79.4 - exterminator helper (current) use of insulin (4) Morbid obesity with BMI of 50.0-59.9, adult Priority: Secondary Status: Chronic (5) Essential hypertension Priority: Secondary Status: Chronic - Discharge Medications Home Medications: Albuterol Sulfate [Ventolin Hfa] 2 puff IH Q4H PRN 06/15/17 [History] Amitriptyline [Elavil] 25 mg PO HS 06/15/17 [History] Aspirin Enteric Coated [Aspirin EC] 81 mg PO DAILY 06/15/17 [History] Beclomethasone Diprop 40mcg [QVAR 40 mcg] 1 puff IH BID 06/15/17 [History] Dicyclomine [Bentyl] 20 mg PO TID PRN 06/15/17 [History] Duloxetine HCl [Cymbalta] 60 mg PO DAILY 06/15/17 [History] Exenatide [Byetta] 10 mcg SQ BID 06/15/17 [History] Fluticasone Propionate Nasal [Flonase] 50 mcg NS DAILY 06/15/17 [History] Gabapentin [Neurontin] 900 mg PO HS 06/15/17 [History] HydrOXYzine Pamoate [Vistaril] 50 mg PO QAM 06/15/17 [History] HydrOXYzine Pamoate [Vistaril] 100 mg PO HS 06/15/17 [History] Insulin Glargine,Hum.rec.anlog [Lantus Solostar] 32 unit SQ HS 06/15/17 [History ] Insulin LISPRO [HumaLOG] 0 unit SQ TIDWM 06/15/17 [History] Lisinopril [Zestril] 10 mg PO DAILY 06/15/17 [History] Lovastatin 10 mg PO QPM 06/15/17 [History] Metformin HCl [Glucophage Xr] 500 mg PO QPM 06/15/17 [History] Naproxen [Naprosyn] 500 mg PO BID PRN 06/15/17 [History] Omeprazole [PriLOSEC] 20 mg PO BIDAC 06/15/17 [History] Propranolol HCl [Innopran Xl] 80 mg PO BID 06/15/17 [History] SUMAtriptan Succinate [Imitrex] 100 mg PO Q2H PRN MDD 200 mg 06/15/17 [History] SitaGLIPtin [Januvia] 100 mg PO DAILY 06/15/17 [History] Trazodone HCl 100 mg PO HS PRN 06/15/17 [History] clonazePAM [Klonopin] 0.5 mg PO BID PRN 06/15/17 [History] glyBURIDE [GlyBURIDE] 10 mg PO BIDWM 06/15/17 [History] Allergies/Adverse Reactions: 3 Allergy/AdvReac Type Severity Reaction Status Date / Time No Known Allergies Allergy Verified 06/09/15 18:36 Procedures/tests Complete & Pending: Procedures Performed prior 72 hours Category Date Time Status CL Cardiac Catheterization [CL] Routine Manufacture Specialist 06/16/17 10:29 Ordered ECG 12 lead ECG [ECG] Routine Y 06/15/17 22:24 Completed ECG 12 lead ECG [ECG] Routine Y 06/16/17 07:00 Ordered EV echocardiogram Routine Y 06/16/17 17:06 Completed Date of admission: 06/15/17 16:54 Primary care physician: Chava Saleh MD Consults: 06/15/17 17:06 Consult to Nurse Navigator [CONS] Routine Comment: Discharging clinician: Mary Ceballos Anticipated date of discharge: 06/16/17 - Patient Status Disposition: Home, Self-Care Condition: Good Functional capacity at discharge: independent ambulation Overall status at discharge: patient is progressing back to baseline - Discharge Instructions Instructions: Chronic Hypertension (DC), Chest Pain (DC) Follow Up With: Chava Saleh MD [Primary Care Provider] - (web request sent on 06/16/17 ) - Diet and Activity Activity: increase activity as tolerated Diet: low fat, low cholesterol, low salt diet Hospital course: Ms. Agee is a 46 year old female patient with a history of diabetes mellitus type 2, hypertension presented to the ER with chest pain. She had substernal chest pressure that was nonradiating. Earlier this month she had an episode of left-sided jaw pain and then underwent cardiac stress test which was positive for reversible ischemia. As such she had been set up for cardiac catheterization later this month. Cardiology was consulted and patient observed to rule out ACS. EKG did not show any acute abnormalities. Troponins were normal. Cardiology evaluated patient and recommended cardiac catheterization. Patient underwent cardiac catheterization today and was not found to have any significant obstructive coronary artery disease. As such she is clinically stable for discharge home. Her chest pain is most likely musculoskeletal in origin. She is chest pain-free at this time and can follow up further with her primary care provider. Her A1c was 6.6%. Her total cholesterol 129 with HDL of 26. LDL at goal at 44. She is recommended to continue aspirin and consider weight loss and control her diabetes well to minimize her risk for developing coronary artery disease. - Time Spent with Patient Total time spent providing and/or coordinating discharge services: Less than 30 minutes (25 min) - Constitutional Vitals: Temp Pulse Resp BP Pulse Ox 97.9 F 81 16 123/72 95 06/16/17 13:25 06/16/17 13:40 06/16/17 13:40 06/16/17 13:40 06/16/17 13:40 General appearance: Present: cooperative, A&O X 3, morbidly obese, answers questions appropriately - Respiratory Respiratory exam: Present: CTAB. Absent: accessory muscle use, rales, rhonchi, wheezes - Cardiovascular Cardiovascular exam: Present: RRR, +S1, +S2. Absent: diastolic murmur, gallop, rubs, systolic murmur - GI/Abdominal GI/Abdominal exam: Present: normal bowel sounds, soft, no peritoneal signs. Absent: distended, tenderness - Extremities Exam Extremities exam: Present: warm, radial pulses palpable and symmetrical. Absent : calf tenderness, cyanotic, pedal edema - Neurological Exam Neurological exam: Present: CN II-XII intact, oriented X3, no focal deficits. Absent: facial droop, speech deficit
[2017-06-16 15:56] VITALS: BP 101/52
--- NOTE | 2017-06-16 18:27 | Electrocardiograph Report ---
[place] [id number] Test Date: 2017-06-15 Pat Name: Rachel Agee Department: 102 Room: 2A43 Gender: F Mohs Surgeon: Munir : 1970 Requested By: Adam Diaz Order Number: [id number] Reading MD: Salomón Morales DO Measurements Intervals [place] Rate: 76 P: 44 AR: 150 QRS: 46 QRSD: 101 T: 55 QT: 408 QTc: 438 Interpretive Statements SINUS RHYTHM Electronically Signed On 06-16-2017 18:25:56 EDT by Salomón Morales DO
--- NOTE | 2017-06-16 18:36 | Electrocardiograph Report ---
[place] [id number] Test Date: 2017-06-15 Pat Name: Rachel Agee Department: 112 Room: 2A43 Gender: F Quality Control Specialist: MALIKA : 1970 Requested By: Mary Ceballos Order Number: [id number] Reading MD: Salomón Morales DO Measurements Intervals [place] Rate: 81 P: 59 GA: 157 QRS: 34 QRSD: 103 T: 43 QT: 402 QTc: 439 Interpretive Statements Sinus rhythm Electronically Signed On 06-16-2017 18:35:14 EDT by Salomón Morales DO
--- NOTE | 2017-06-19 06:12 | Electrocardiograph Report ---
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
== END 2017-06-16 16:13 | disposition home or self-care (01) ==
LOC: EMEROO 14:12 → 2ANU 14:12
PROVIDERS: ADMIT Internal Medicine; ATTEND Internal Medicine